=== PATIENT | male | born 1945 | race Caucasian/White ===

== ENCOUNTER 2021-09-20 19:54 | Inpatient (IN) | payer MEDICARE, SELFPAY ==
[~2021-09-20] VITALS: Ht 172.7 cm; Wt 71.7 kg
[2021-09-20 19:59] VITALS: BP_SYST 135
[2021-09-20] MEDS ORDERED: NACL 0.9% 1,000 ML IV ONE ×2 (20:15→22:30)
[2021-09-20 21:01] LABS: ANION GAP 16 (5-15); CALCIUM 8.9 mg/dL (8.4-11.0); CHLORIDE 97 mmol/L (98-107); CREATININE 0.93 mg/dL (0.55-1.30); GLUCOSE 237 mg/dL (70-99); POTASSIUM 4.2 mmol/L (3.5-5.1); SODIUM SERUM 135 mmol/L (136-145); UREA NITROGEN, BLOOD 22 mg/dL (8-21)
[2021-09-20 21:06] LABS: BASOPHILS % (AUTO) 0.1 % (0.0-2.0); HEMATOCRIT 45.5 % (36-54); HEMOGLOBIN 15.5 g/dL (14.0-18.0); LYMPHOCYTES # (AUTO) 0.6 K/uL (1.0-5.5); MEAN CORPUSCULAR HEMOGLOBIN 29 pg (27-31); MEAN CORPUSCULAR HGB CONC 34 % (32-36); MEAN CORPUSCULAR VOLUME 86 fL (79.0-98.0); MONOCYTES # (AUTO) 0.7 K/uL (0.0-1.0); MONOCYTES % (AUTO) 10.6 % (1.7-9.3); NEUTROPHILS # (AUTO) 4.9 K/uL (1.8-7.7); NEUTROPHILS % (AUTO) 79.3 % (40.0-70.0); PLATELET COUNT (AUTO) 147 K/uL (130-430); RED BLOOD CELL COUNT(AUTO) 5.31 MIL/uL (4.2-6.2); RED CELL DISTRIBUTION WIDTH 13.5 % (9.0-15.0); WHITE BLOOD COUNT (AUTO) 6.2 K/uL (4.8-10.8)
[2021-09-20 21:11] LABS: ALANINE AMINOTRANSFERASE 37 U/L (12-78); ALBUMIN 2.8 g/dL (3.4-4.8); ASPARTATE AMINOTRANSFERASE 54 U/L (10-37); TOTAL BILIRUBIN 0.7 mg/dL (0.0-1.0)
[2021-09-20 21:24] LABS: PROTHROMBIN TIME 9.7 SECS (9.5-12.5)
[2021-09-20] MEDS ORDERED: IOHEXOL 350 mgI/mL, 150 ML INFUS..BTL IV ONE (22:38)
[2021-09-21] VITALS (8 sets, daily range): BP systolic 117–138
[2021-09-21 04:40] LABS: BILIRUBIN,URINE NEGATIVE (NEGATIVE); BLOOD, URINE NEGATIVE (NEGATIVE); CLARITY/URINE CLEAR (CLEAR); COLOR,URINE YELLOW (YELLOW); GLUCOSE,URINE 3+ (NEGATIVE); KETONES,URINE 2+ (NEGATIVE); LEUKOCYTE ESTERASE ,URINE NEGATIVE (NEGATIVE); NITRITE, URINE NEGATIVE (NEGATIVE); PH,URINE 5.5 (5.0-8.0); PROTEIN URINE NEGATIVE (NEGATIVE); UROBILINOGEN,URINE 0.2 (0.2-1.0)
[2021-09-21] MEDS ORDERED: D5NS 1,000 ML IV SCH (04:45)
[2021-09-21 04:54] LABS: BACTERIA,URINE FEW /HPF (None Seen); MUCUS,URINE None Seen /LPF (None Seen); YEAST,URINE Many /HPF (None Seen)
[2021-09-21] MEDS: D5/0.45 NS 1,000 ML IV SCH ×2 (11:30→21:30)
[2021-09-21] MEDS ORDERED: ACETAMINOPHEN 325 MG TABLET PO PRN (11:30)
[2021-09-21] MEDS ORDERED: ONDANSETRON HCL 4 MG/2 ML VIAL IVP PRN (11:30)
[2021-09-21] MEDS ORDERED: AZITHROMYCIN 500 MG/VIAL (ZITHROMAX) IV ONE (12:24)
[2021-09-21] MEDS: DEXAMETHASONE SOD PHOSPHATE 10 MG/ML VIAL IVP SCH (12:45)
[2021-09-21] MEDS: cefTRIAXone 1 GM IVPB PREMIX 50 ML IV SCH (12:45)
[2021-09-21] MEDS ORDERED: INSULIN REGULAR, HUMAN 10 UNITS/0.1 ML INJ ONE (13:04)
[2021-09-21] MEDS: INSULIN REGULAR, HUMAN 100 UNITS/ML, 10 ML VIAL (humuLIN R) SUBCUT PRN (13:11)
[2021-09-21] MEDS: AZITHROMYCIN 500 MG in NS 250 ML IV SCH (13:11)
[2021-09-21] MEDS ORDERED: IPRATROPIUM BROM 0.5 MG/2.5 ML VIAL.NEB (ATROVENT) INH SCH (15:00)
[2021-09-21] MEDS ORDERED: ALBUTEROL SULFATE 0.083% 2.5 MG/3 ML VIAL.NEB INH SCH (15:00)
[2021-09-21] MEDS ORDERED: IPRATROPIUM BROM 0.5 MG/2.5 ML VIAL.NEB (ATROVENT) INH PRN (17:00)
[2021-09-21] MEDS ORDERED: ALBUTEROL MDI INHALATION 8 GM INH INH PRN (17:00)
[2021-09-21] MEDS: IBUPROFEN 600 MG TABLET PO PRN (18:17)
[2021-09-21] MEDS: ALBUTEROL MDI INHALATION 8 GM INH INH SCH (20:00)
[2021-09-22] VITALS (12 sets, daily range): BP systolic 111–140
[2021-09-22] MEDS: INSULIN REGULAR, HUMAN 100 UNITS/ML, 10 ML VIAL (humuLIN R) SUBCUT PRN ×3 (05:43→18:24)
[2021-09-22 07:15] LABS: BASOPHILS % (AUTO) 0.1 % (0.0-2.0); HEMATOCRIT 43.7 % (36-54); HEMOGLOBIN 14.7 g/dL (14.0-18.0); LYMPHOCYTES # (AUTO) 0.7 K/uL (1.0-5.5); LYMPHOCYTES % (AUTO) 8.5 % (20.5-51.5); MEAN CORPUSCULAR HEMOGLOBIN 29 pg (27-31); MEAN CORPUSCULAR HGB CONC 34 % (32-36); MEAN CORPUSCULAR VOLUME 87 fL (79.0-98.0); MONOCYTES # (AUTO) 0.8 K/uL (0.0-1.0); MONOCYTES % (AUTO) 10.2 % (1.7-9.3); NEUTROPHILS # (AUTO) 6.6 K/uL (1.8-7.7); NEUTROPHILS % (AUTO) 81.2 % (40.0-70.0); PLATELET COUNT (AUTO) 125 K/uL (130-430); RED BLOOD CELL COUNT(AUTO) 5.02 MIL/uL (4.2-6.2); RED CELL DISTRIBUTION WIDTH 13.6 % (9.0-15.0); WHITE BLOOD COUNT (AUTO) 8.1 K/uL (4.8-10.8)
[2021-09-22] MEDS: D5/0.45 NS 1,000 ML IV SCH ×2 (07:30→18:24)
[2021-09-22 07:41] LABS: ANION GAP 22 (5-15); CALCIUM 8.4 mg/dL (8.4-11.0); CHLORIDE 102 mmol/L (98-107); CREATININE 0.94 mg/dL (0.55-1.30); GLUCOSE 196 mg/dL (70-99); POTASSIUM 4.3 mmol/L (3.5-5.1); SODIUM SERUM 139 mmol/L (136-145); UREA NITROGEN, BLOOD 27 mg/dL (8-21)
[2021-09-22] MEDS ORDERED: ENOXAPARIN SODIUM 40 MG/0.4 ML SYRINGE SUBCUT SCH (09:00)
[2021-09-22] MEDS ORDERED: ASPIRIN 325 MG TABLET PO ONE (10:00)
[2021-09-22] MEDS ORDERED: ASPIRIN 325 MG TABLET (ECOTRIN) PO ONE (10:02)
[2021-09-22] MEDS: AZITHROMYCIN 500 MG in NS 250 ML IV SCH (11:29)
[2021-09-22] MEDS: FLUCONAZOLE 100 mg/ NS 50 ML IV SCH (11:29)
[2021-09-22] MEDS: cefTRIAXone 1 GM IVPB PREMIX 50 ML IV SCH (11:43)
[2021-09-22] MEDS: DEXAMETHASONE SOD PHOSPHATE 10 MG/ML VIAL IVP SCH (11:53)
[2021-09-22 14:54] LABS: ALBUMIN 2.6 g/dL (3.4-4.8); BILIRUBIN,DIRECT 0.1 mg/dL (0.0-0.3); TOTAL BILIRUBIN 0.4 mg/dL (0.0-1.0)
[2021-09-22 15:21] LABS: C-REACTIVE PROTEIN QUANT 13.6 mg/dL (0-0.5)
[2021-09-22] MEDS: ALBUTEROL MDI INHALATION 8 GM INH INH SCH ×2 (20:00→22:57)
[2021-09-22] MEDS: APIXABAN 2.5 MG TABLET PO SCH (21:40)
[2021-09-23] VITALS (21 sets, daily range): BP systolic 99–148
[2021-09-23 06:36] LABS: BASOPHILS % (AUTO) 0.1 % (0.0-2.0); HEMATOCRIT 43.6 % (36-54); HEMOGLOBIN 14.6 g/dL (14.0-18.0); LYMPHOCYTES # (AUTO) 0.5 K/uL (1.0-5.5); LYMPHOCYTES % (AUTO) 4.5 % (20.5-51.5); MEAN CORPUSCULAR HEMOGLOBIN 29 pg (27-31); MEAN CORPUSCULAR HGB CONC 33 % (32-36); MEAN CORPUSCULAR VOLUME 87 fL (79.0-98.0); MONOCYTES # (AUTO) 0.9 K/uL (0.0-1.0); MONOCYTES % (AUTO) 7.4 % (1.7-9.3); NEUTROPHILS # (AUTO) 10.5 K/uL (1.8-7.7); PLATELET COUNT (AUTO) 69 K/uL (130-430); RED BLOOD CELL COUNT(AUTO) 5.04 MIL/uL (4.2-6.2); RED CELL DISTRIBUTION WIDTH 13.7 % (9.0-15.0); WHITE BLOOD COUNT (AUTO) 11.9 K/uL (4.8-10.8)
[2021-09-23] MEDS: INSULIN REGULAR, HUMAN 100 UNITS/ML, 10 ML VIAL (humuLIN R) SUBCUT PRN ×3 (07:09→18:35)
[2021-09-23] MEDS: D5/0.45 NS 1,000 ML IV SCH ×2 (07:10→23:30)
[2021-09-23 07:33] LABS: PROTHROMBIN TIME 9.9 SECS (9.5-12.5)
[2021-09-23 08:01] LABS: ALANINE AMINOTRANSFERASE 31 U/L (12-78); ALBUMIN 2.3 g/dL (3.4-4.8); ANION GAP 23 (5-15); ASPARTATE AMINOTRANSFERASE 47 U/L (10-37); CALCIUM 8.5 mg/dL (8.4-11.0); CHLORIDE 104 mmol/L (98-107); CREATININE 0.86 mg/dL (0.55-1.30); GLUCOSE 213 mg/dL (70-99); POTASSIUM 4.1 mmol/L (3.5-5.1); SODIUM SERUM 140 mmol/L (136-145); TOTAL BILIRUBIN 0.4 mg/dL (0.0-1.0); UREA NITROGEN, BLOOD 23 mg/dL (8-21)
[2021-09-23 08:37] LABS: C-REACTIVE PROTEIN QUANT 9.5 mg/dL (0-0.5)
[2021-09-23] MEDS: APIXABAN 2.5 MG TABLET PO SCH ×2 (09:00→21:00)
[2021-09-23] MEDS: BARICITINIB -Non-Formulary 2 MG TABLET PO SCH (09:24)
[2021-09-23] MEDS: CHOLECALCIFEROL (VITAMIN D3) 2,000 UNIT TABLET PO SCH (09:25)
[2021-09-23] MEDS: ASCORBIC ACID 500 MG TABLET PO SCH ×2 (09:29→21:00)
[2021-09-23] MEDS: DEXAMETHASONE SOD PHOSPHATE 10 MG/ML VIAL IVP SCH (11:58)
[2021-09-23] MEDS: AZITHROMYCIN 500 MG in NS 250 ML IV SCH (11:59)
[2021-09-23] MEDS: cefTRIAXone 1 GM IVPB PREMIX 50 ML IV SCH (11:59)
[2021-09-23] MEDS: FLUCONAZOLE 100 mg/ NS 50 ML IV SCH (12:00)
[2021-09-23 12:58] LABS: ERYTHROCYTE SEDIMENTATION RATE 63 MM/HR (0-15)
[2021-09-24] VITALS (13 sets, daily range): BP systolic 116–151
[2021-09-24] MEDS: INSULIN REGULAR, HUMAN 100 UNITS/ML, 10 ML VIAL (humuLIN R) SUBCUT PRN (06:12)
[2021-09-24 07:53] LABS: ALANINE AMINOTRANSFERASE 23 U/L (12-78); ALBUMIN 2.5 g/dL (3.4-4.8); ANION GAP 14 (5-15); ASPARTATE AMINOTRANSFERASE 34 U/L (10-37); C-REACTIVE PROTEIN QUANT 9.3 mg/dL (0-0.5); CALCIUM 9.1 mg/dL (8.4-11.0); CHLORIDE 106 mmol/L (98-107); CREATININE 0.82 mg/dL (0.55-1.30); GLUCOSE 194 mg/dL (70-99); LACTATE DEHYDROGENASE 416 U/L (85-227); SODIUM SERUM 141 mmol/L (136-145); TOTAL BILIRUBIN 0.4 mg/dL (0.0-1.0); UREA NITROGEN, BLOOD 28 mg/dL (8-21)
[2021-09-24] MEDS: BARICITINIB -Non-Formulary 2 MG TABLET PO SCH (08:47)
[2021-09-24] MEDS: APIXABAN 2.5 MG TABLET PO SCH ×2 (08:48→21:00)
[2021-09-24] MEDS: CHOLECALCIFEROL (VITAMIN D3) 2,000 UNIT TABLET PO SCH (08:48)
[2021-09-24] MEDS: D5/0.45 NS 1,000 ML IV SCH (09:30)
[2021-09-24 09:37] LABS: BASOPHILS % (AUTO) 0.1 % (0.0-2.0); EOSINOPHILS % (AUTO) 0.1 % (0.0-4.0); HEMATOCRIT 45.3 % (36-54); HEMOGLOBIN 15.3 g/dL (14.0-18.0); LYMPHOCYTES # (AUTO) 0.6 K/uL (1.0-5.5); LYMPHOCYTES % (AUTO) 7.9 % (20.5-51.5); MEAN CORPUSCULAR HEMOGLOBIN 29 pg (27-31); MEAN CORPUSCULAR HGB CONC 34 % (32-36); MEAN CORPUSCULAR VOLUME 86 fL (79.0-98.0); MONOCYTES # (AUTO) 0.7 K/uL (0.0-1.0); MONOCYTES % (AUTO) 9.6 % (1.7-9.3); NEUTROPHILS # (AUTO) 6.1 K/uL (1.8-7.7); NEUTROPHILS % (AUTO) 82.3 % (40.0-70.0); RED BLOOD CELL COUNT(AUTO) 5.29 MIL/uL (4.2-6.2); RED CELL DISTRIBUTION WIDTH 13.8 % (9.0-15.0); WHITE BLOOD COUNT (AUTO) 7.4 K/uL (4.8-10.8)
[2021-09-24 10:41] LABS: PLATELET COUNT (AUTO) 24 K/uL (130-430)
[2021-09-24] MEDS: ASCORBIC ACID 500 MG TABLET PO SCH ×2 (12:40→21:00)
[2021-09-24] MEDS: AZITHROMYCIN 500 MG in NS 250 ML IV SCH (12:41)
[2021-09-24] MEDS: cefTRIAXone 1 GM IVPB PREMIX 50 ML IV SCH (12:42)
[2021-09-24] MEDS: FLUCONAZOLE 100 mg/ NS 50 ML IV SCH (12:42)
[2021-09-24] MEDS: DEXAMETHASONE SOD PHOSPHATE 10 MG/ML VIAL IVP SCH (12:45)
[2021-09-24 13:40] LABS: ERYTHROCYTE SEDIMENTATION RATE 23 MM/HR (0-15)
[2021-09-25] VITALS (24 sets, daily range): BP systolic 110–157
[2021-09-25 07:40] LABS: HEMATOCRIT 43.1 % (36-54); HEMOGLOBIN 14.8 g/dL (14.0-18.0); LYMPHOCYTES # (AUTO) 0.5 K/uL (1.0-5.5); LYMPHOCYTES % (AUTO) 6.5 % (20.5-51.5); MEAN CORPUSCULAR HEMOGLOBIN 29 pg (27-31); MEAN CORPUSCULAR HGB CONC 34 % (32-36); MEAN CORPUSCULAR VOLUME 84 fL (79.0-98.0); MONOCYTES # (AUTO) 0.7 K/uL (0.0-1.0); MONOCYTES % (AUTO) 8.7 % (1.7-9.3); NEUTROPHILS # (AUTO) 6.4 K/uL (1.8-7.7); NEUTROPHILS % (AUTO) 84.8 % (40.0-70.0); RED BLOOD CELL COUNT(AUTO) 5.14 MIL/uL (4.2-6.2); RED CELL DISTRIBUTION WIDTH 13.4 % (9.0-15.0); WHITE BLOOD COUNT (AUTO) 7.6 K/uL (4.8-10.8)
[2021-09-25 08:03] LABS: ALANINE AMINOTRANSFERASE 30 U/L (12-78); ALBUMIN 2.5 g/dL (3.4-4.8); ANION GAP 15 (5-15); ASPARTATE AMINOTRANSFERASE 30 U/L (10-37); CALCIUM 8.9 mg/dL (8.4-11.0); CHLORIDE 106 mmol/L (98-107); CREATININE 0.78 mg/dL (0.55-1.30); GLUCOSE 263 mg/dL (70-99); POTASSIUM 3.8 mmol/L (3.5-5.1); SODIUM SERUM 143 mmol/L (136-145); TOTAL BILIRUBIN 0.5 mg/dL (0.0-1.0); UREA NITROGEN, BLOOD 29 mg/dL (8-21)
[2021-09-25] MEDS ORDERED: LORazepam 2 MG/ML VIAL IVP PRN (08:30)
[2021-09-25] MEDS: INSULIN REGULAR, HUMAN 100 UNITS/ML, 10 ML VIAL (humuLIN R) SUBCUT PRN ×3 (08:31→18:11)
[2021-09-25] MEDS: APIXABAN 2.5 MG TABLET PO SCH ×2 (09:03→22:03)
[2021-09-25] MEDS: BARICITINIB -Non-Formulary 2 MG TABLET PO SCH (09:04)
[2021-09-25] MEDS: ASCORBIC ACID 500 MG TABLET PO SCH ×2 (09:04→22:02)
[2021-09-25] MEDS: CHOLECALCIFEROL (VITAMIN D3) 2,000 UNIT TABLET PO SCH (09:04)
[2021-09-25 10:57] LABS: PLATELET COUNT (AUTO) 15 K/uL (130-430)
[2021-09-25] MEDS: FLUCONAZOLE 100 mg/ NS 50 ML IV SCH (11:48)
[2021-09-25] MEDS: cefTRIAXone 1 GM IVPB PREMIX 50 ML IV SCH (12:07)
[2021-09-25] MEDS: AZITHROMYCIN 500 MG in NS 250 ML IV SCH (12:07)
[2021-09-25] MEDS: DEXAMETHASONE SOD PHOSPHATE 10 MG/ML VIAL IVP SCH (12:08)
[2021-09-25] MEDS: D5/0.45 NS 1,000 ML IV SCH (22:04)
[2021-09-25] MEDS: DEXMEDETOMIDINE HCL 400 MCG in NS 96 ML IV PRN (22:31)
[2021-09-26] VITALS (24 sets, daily range): BP systolic 102–142
[2021-09-26] MEDS: INSULIN REGULAR, HUMAN 100 UNITS/ML, 10 ML VIAL (humuLIN R) SUBCUT PRN ×4 (00:58→18:09)
[2021-09-26 06:18] LABS: BASOPHILS % (AUTO) 0.1 % (0.0-2.0); HEMATOCRIT 42.1 % (36-54); HEMOGLOBIN 14.5 g/dL (14.0-18.0); LYMPHOCYTES # (AUTO) 0.5 K/uL (1.0-5.5); LYMPHOCYTES % (AUTO) 5.1 % (20.5-51.5); MEAN CORPUSCULAR HEMOGLOBIN 29 pg (27-31); MEAN CORPUSCULAR HGB CONC 34 % (32-36); MEAN CORPUSCULAR VOLUME 84 fL (79.0-98.0); MONOCYTES # (AUTO) 0.9 K/uL (0.0-1.0); MONOCYTES % (AUTO) 8.4 % (1.7-9.3); NEUTROPHILS # (AUTO) 8.9 K/uL (1.8-7.7); NEUTROPHILS % (AUTO) 86.4 % (40.0-70.0); RED BLOOD CELL COUNT(AUTO) 4.99 MIL/uL (4.2-6.2); RED CELL DISTRIBUTION WIDTH 13.5 % (9.0-15.0); WHITE BLOOD COUNT (AUTO) 10.3 K/uL (4.8-10.8)
[2021-09-26 06:36] LABS: ALANINE AMINOTRANSFERASE 22 U/L (12-78); ALBUMIN 2.3 g/dL (3.4-4.8); ANION GAP 9 (5-15); ASPARTATE AMINOTRANSFERASE 23 U/L (10-37); CALCIUM 8.6 mg/dL (8.4-11.0); CHLORIDE 108 mmol/L (98-107); CREATININE 0.74 mg/dL (0.55-1.30); GLUCOSE 327 mg/dL (70-99); SODIUM SERUM 143 mmol/L (136-145); TOTAL BILIRUBIN 0.5 mg/dL (0.0-1.0); UREA NITROGEN, BLOOD 31 mg/dL (8-21)
[2021-09-26 07:41] LABS: PLATELET COUNT (AUTO) 25 K/uL (130-430)
[2021-09-26 08:01] LABS: ERYTHROCYTE SEDIMENTATION RATE 7 MM/HR (0-15)
[2021-09-26] MEDS: DEXMEDETOMIDINE HCL 400 MCG in NS 96 ML IV PRN ×2 (08:41→17:50)
[2021-09-26] MEDS: ASCORBIC ACID 500 MG TABLET PO SCH ×2 (09:33→20:45)
[2021-09-26] MEDS: D5/0.45 NS 1,000 ML IV SCH ×3 (09:34→20:29)
[2021-09-26] MEDS: CHOLECALCIFEROL (VITAMIN D3) 2,000 UNIT TABLET PO SCH (09:34)
[2021-09-26 10:06] LABS: FOLATE (FOLIC ACID) 12.4 ng/mL (>3.0)
[2021-09-26] MEDS: BARICITINIB -Non-Formulary 2 MG TABLET PO SCH (10:11)
[2021-09-26] MEDS: APIXABAN 2.5 MG TABLET PO SCH ×2 (11:09→20:46)
[2021-09-26] MEDS: cefTRIAXone 1 GM IVPB PREMIX 50 ML IV SCH (11:52)
[2021-09-26] MEDS: DEXAMETHASONE SOD PHOSPHATE 10 MG/ML VIAL IVP SCH (11:52)
[2021-09-26] MEDS: FLUCONAZOLE 100 mg/ NS 50 ML IV SCH (12:34)
[2021-09-26] MEDS: ALBUTEROL MDI INHALATION 8 GM INH INH SCH ×2 (20:30→23:00)
[2021-09-27] VITALS (20 sets, daily range): BP systolic 92–136
[2021-09-27] MEDS: INSULIN REGULAR, HUMAN 100 UNITS/ML, 10 ML VIAL (humuLIN R) SUBCUT PRN ×4 (01:03→19:35)
[2021-09-27] MEDS: ALBUTEROL MDI INHALATION 8 GM INH INH SCH (03:00)
[2021-09-27 07:53] LABS: ANION GAP 8 (5-15); CALCIUM 8.3 mg/dL (8.4-11.0); CHLORIDE 106 mmol/L (98-107); CREATININE 0.58 mg/dL (0.55-1.30); GLUCOSE 258 mg/dL (70-99); POTASSIUM 3.6 mmol/L (3.5-5.1); SODIUM SERUM 140 mmol/L (136-145); UREA NITROGEN, BLOOD 26 mg/dL (8-21)
[2021-09-27 08:50] LABS: HEMATOCRIT 41.7 % (36-54); HEMOGLOBIN 14.1 g/dL (14.0-18.0); LYMPHOCYTES # (AUTO) 0.5 K/uL (1.0-5.5); LYMPHOCYTES % (AUTO) 4.3 % (20.5-51.5); MEAN CORPUSCULAR HEMOGLOBIN 29 pg (27-31); MEAN CORPUSCULAR HGB CONC 34 % (32-36); MEAN CORPUSCULAR VOLUME 85 fL (79.0-98.0); MONOCYTES # (AUTO) 0.7 K/uL (0.0-1.0); MONOCYTES % (AUTO) 6.4 % (1.7-9.3); NEUTROPHILS # (AUTO) 9.8 K/uL (1.8-7.7); NEUTROPHILS % (AUTO) 89.3 % (40.0-70.0); RED BLOOD CELL COUNT(AUTO) 4.89 MIL/uL (4.2-6.2); RED CELL DISTRIBUTION WIDTH 13.1 % (9.0-15.0); WHITE BLOOD COUNT (AUTO) 10.9 K/uL (4.8-10.8)
[2021-09-27] MEDS: APIXABAN 2.5 MG TABLET PO SCH ×2 (09:00→21:17)
[2021-09-27] MEDS: BARICITINIB -Non-Formulary 2 MG TABLET PO SCH (09:00)
[2021-09-27 10:10] LABS: ERYTHROCYTE SEDIMENTATION RATE 2 MM/HR (0-15)
[2021-09-27] MEDS: ASCORBIC ACID 500 MG TABLET PO SCH ×2 (10:17→21:16)
[2021-09-27] MEDS: CHOLECALCIFEROL (VITAMIN D3) 2,000 UNIT TABLET PO SCH (10:17)
[2021-09-27] MEDS: FLUCONAZOLE 100 mg/ NS 50 ML IV SCH (11:00)
[2021-09-27 11:06] LABS: ANTI NUCLEAR AB WITH REFLEX Negative (Negative)
[2021-09-27] MEDS: cefTRIAXone 1 GM IVPB PREMIX 50 ML IV SCH (12:00)
[2021-09-27] MEDS: DEXAMETHASONE SOD PHOSPHATE 10 MG/ML VIAL IVP SCH (12:00)
[2021-09-27 13:15] LABS: PLATELET COUNT (AUTO) 24 K/uL (130-430)
[2021-09-28] VITALS (23 sets, daily range): BP systolic 113–155
[2021-09-28] MEDS: IBUPROFEN 600 MG TABLET PO PRN ×2 (00:01→02:58)
[2021-09-28] MEDS: INSULIN REGULAR, HUMAN 100 UNITS/ML, 10 ML VIAL (humuLIN R) SUBCUT PRN ×4 (00:29→18:52)
[2021-09-28] MEDS: D5/0.45 NS 1,000 ML IV SCH ×2 (03:30→08:55)
[2021-09-28 07:18] LABS: BASOPHILS % (AUTO) 0.1 % (0.0-2.0); HEMATOCRIT 42.5 % (36-54); HEMOGLOBIN 14.6 g/dL (14.0-18.0); LYMPHOCYTES # (AUTO) 0.7 K/uL (1.0-5.5); LYMPHOCYTES % (AUTO) 5.6 % (20.5-51.5); MEAN CORPUSCULAR HEMOGLOBIN 29 pg (27-31); MEAN CORPUSCULAR HGB CONC 34 % (32-36); MEAN CORPUSCULAR VOLUME 85 fL (79.0-98.0); MONOCYTES # (AUTO) 0.8 K/uL (0.0-1.0); MONOCYTES % (AUTO) 6.5 % (1.7-9.3); NEUTROPHILS # (AUTO) 10.4 K/uL (1.8-7.7); NEUTROPHILS % (AUTO) 87.8 % (40.0-70.0); PLATELET COUNT (AUTO) 55 K/uL (130-430); RED BLOOD CELL COUNT(AUTO) 5.02 MIL/uL (4.2-6.2); RED CELL DISTRIBUTION WIDTH 13.4 % (9.0-15.0); WHITE BLOOD COUNT (AUTO) 11.9 K/uL (4.8-10.8)
[2021-09-28 08:46] LABS: ALANINE AMINOTRANSFERASE 30 U/L (12-78); ALBUMIN 2.3 g/dL (3.4-4.8); ANION GAP 7 (5-15); ASPARTATE AMINOTRANSFERASE 36 U/L (10-37); C-REACTIVE PROTEIN QUANT 3.9 mg/dL (0-0.5); CALCIUM 8.6 mg/dL (8.4-11.0); CHLORIDE 103 mmol/L (98-107); CREATININE 0.65 mg/dL (0.55-1.30); GLUCOSE 189 mg/dL (70-99); POTASSIUM 3.6 mmol/L (3.5-5.1); SODIUM SERUM 140 mmol/L (136-145); TOTAL BILIRUBIN 0.9 mg/dL (0.0-1.0); UREA NITROGEN, BLOOD 25 mg/dL (8-21)
[2021-09-28] MEDS: ASCORBIC ACID 500 MG TABLET PO SCH ×2 (08:52→20:07)
[2021-09-28] MEDS: BARICITINIB -Non-Formulary 2 MG TABLET PO SCH (08:52)
[2021-09-28] MEDS: APIXABAN 2.5 MG TABLET PO SCH ×2 (08:54→21:15)
[2021-09-28] MEDS: CHOLECALCIFEROL (VITAMIN D3) 2,000 UNIT TABLET PO SCH (08:54)
[2021-09-28 10:53] LABS: ERYTHROCYTE SEDIMENTATION RATE 3 MM/HR (0-15)
[2021-09-28] MEDS: FLUCONAZOLE 100 mg/ NS 50 ML IV SCH (12:18)
[2021-09-28] MEDS: DEXAMETHASONE SOD PHOSPHATE 10 MG/ML VIAL IVP SCH (12:21)
[2021-09-28] MEDS: cefTRIAXone 1 GM IVPB PREMIX 50 ML IV SCH (12:58)
[2021-09-28] MEDS: ALBUTEROL MDI INHALATION 8 GM INH INH SCH ×2 (19:00→22:53)
[2021-09-28] MEDS ORDERED: NALOXONE HCL 0.4 MG/ML AMP (NARCAN) IVP PRN ×2 (20:00→20:15)
[2021-09-28] MEDS ORDERED: HYDROcodone/ACETAMIN 10-325 MG TAB PO PRN (20:00)
[2021-09-28] MEDS: HYDROcodone/ACETAMIN 10-325 MG TAB PO PRN (20:25)
[2021-09-28] MEDS ORDERED: INSULIN GLARGINE 100 UNITS/ML 10 ML VIAL SUBCUT SCH (21:00)
[2021-09-29] VITALS (24 sets, daily range): BP systolic 111–158
[2021-09-29] MEDS: D5/0.45 NS 1,000 ML IV SCH ×2 (00:10→09:16)
[2021-09-29] MEDS: HYDROcodone/ACETAMIN 10-325 MG TAB PO PRN ×2 (01:00→05:56)
[2021-09-29] MEDS: ALBUTEROL MDI INHALATION 8 GM INH INH SCH ×6 (03:00→23:00)
[2021-09-29 06:06] LABS: ANION GAP 7 (5-15); CALCIUM 8.4 mg/dL (8.4-11.0); CHLORIDE 100 mmol/L (98-107); CREATININE 0.53 mg/dL (0.55-1.30); GLUCOSE 262 mg/dL (70-99); POTASSIUM 4.2 mmol/L (3.5-5.1); SODIUM SERUM 137 mmol/L (136-145); UREA NITROGEN, BLOOD 21 mg/dL (8-21)
[2021-09-29] MEDS: INSULIN REGULAR, HUMAN 100 UNITS/ML, 10 ML VIAL (humuLIN R) SUBCUT PRN ×4 (06:14→21:56)
[2021-09-29 07:22] LABS: BASOPHILS % (AUTO) 0.1 % (0.0-2.0); HEMATOCRIT 40.6 % (36-54); HEMOGLOBIN 13.8 g/dL (14.0-18.0); LYMPHOCYTES # (AUTO) 0.4 K/uL (1.0-5.5); LYMPHOCYTES % (AUTO) 3.9 % (20.5-51.5); MEAN CORPUSCULAR HEMOGLOBIN 29 pg (27-31); MEAN CORPUSCULAR HGB CONC 34 % (32-36); MEAN CORPUSCULAR VOLUME 85 fL (79.0-98.0); MONOCYTES # (AUTO) 0.9 K/uL (0.0-1.0); MONOCYTES % (AUTO) 7.9 % (1.7-9.3); NEUTROPHILS # (AUTO) 9.7 K/uL (1.8-7.7); RED BLOOD CELL COUNT(AUTO) 4.76 MIL/uL (4.2-6.2); RED CELL DISTRIBUTION WIDTH 13.2 % (9.0-15.0)
[2021-09-29 07:31] LABS: C-REACTIVE PROTEIN QUANT 2.7 mg/dL (0-0.5)
[2021-09-29 08:09] LABS: PLATELET COUNT (AUTO) 46 K/uL (130-430)
[2021-09-29] MEDS: APIXABAN 2.5 MG TABLET PO SCH ×2 (09:09→21:52)
[2021-09-29] MEDS: BARICITINIB -Non-Formulary 2 MG TABLET PO SCH (09:12)
[2021-09-29] MEDS: CHOLECALCIFEROL (VITAMIN D3) 2,000 UNIT TABLET PO SCH (09:13)
[2021-09-29] MEDS: ASCORBIC ACID 500 MG TABLET PO SCH ×2 (09:13→21:42)
[2021-09-29] MEDS: FLUCONAZOLE 100 mg/ NS 50 ML IV SCH (10:51)
[2021-09-29 12:33] LABS: ERYTHROCYTE SEDIMENTATION RATE 5 MM/HR (0-15)
[2021-09-29] MEDS: DEXAMETHASONE SOD PHOSPHATE 10 MG/ML VIAL IVP SCH (12:59)
[2021-09-29] MEDS: cefTRIAXone 1 GM IVPB PREMIX 50 ML IV SCH (13:00)
[2021-09-29] MEDS ORDERED: MECLIZINE HCL 25 MG TABLET (ANITVERT) PO PRN (14:00)
[2021-09-29 15:33] LABS: NEUTROPHILS % (AUTO) 88.1 % (40.0-70.0)
[2021-09-29] MEDS: HYDROcodone/ACETAMIN 5-325 MG TAB (NORCO/ VICODIN) PO PRN (17:37)
[2021-09-29] MEDS: 0.45% NACL 1,000 ML IV SCH (21:42)
[2021-09-29] MEDS: INSULIN GLARGINE 100 UNITS/ML 10 ML VIAL SUBCUT SCH (21:49)
[2021-09-29] MEDS: INSULIN Lispro 100 UNITS/ML VIAL (humaLOG) SUBCUT SCH (21:51)
[2021-09-30] VITALS (19 sets, daily range): BP systolic 105–146
[2021-09-30] MEDS: INSULIN REGULAR, HUMAN 100 UNITS/ML, 10 ML VIAL (humuLIN R) SUBCUT PRN ×4 (00:34→18:56)
[2021-09-30] MEDS: ALBUTEROL MDI INHALATION 8 GM INH INH SCH ×6 (03:06→23:00)
[2021-09-30] MEDS: HYDROcodone/ACETAMIN 10-325 MG TAB PO PRN (03:07)
[2021-09-30 06:57] LABS: BASOPHILS % (AUTO) 0.1 % (0.0-2.0); EOSINOPHILS % (AUTO) 0.1 % (0.0-4.0); HEMOGLOBIN 12.9 g/dL (14.0-18.0); LYMPHOCYTES # (AUTO) 0.4 K/uL (1.0-5.5); LYMPHOCYTES % (AUTO) 3.7 % (20.5-51.5); MEAN CORPUSCULAR HEMOGLOBIN 29 pg (27-31); MEAN CORPUSCULAR HGB CONC 35 % (32-36); MEAN CORPUSCULAR VOLUME 84 fL (79.0-98.0); MONOCYTES # (AUTO) 0.7 K/uL (0.0-1.0); MONOCYTES % (AUTO) 6.2 % (1.7-9.3); NEUTROPHILS # (AUTO) 9.6 K/uL (1.8-7.7); NEUTROPHILS % (AUTO) 89.9 % (40.0-70.0); PLATELET COUNT (AUTO) 58 K/uL (130-430); RED BLOOD CELL COUNT(AUTO) 4.38 MIL/uL (4.2-6.2); RED CELL DISTRIBUTION WIDTH 13.3 % (9.0-15.0); WHITE BLOOD COUNT (AUTO) 10.6 K/uL (4.8-10.8)
[2021-09-30 07:15] LABS: ALANINE AMINOTRANSFERASE 32 U/L (12-78); ALBUMIN 1.8 g/dL (3.4-4.8); ANION GAP 3 (5-15); ASPARTATE AMINOTRANSFERASE 27 U/L (10-37); C-REACTIVE PROTEIN QUANT 5.2 mg/dL (0-0.5); CALCIUM 8.1 mg/dL (8.4-11.0); CHLORIDE 100 mmol/L (98-107); CREATININE 0.57 mg/dL (0.55-1.30); GLUCOSE 236 mg/dL (70-99); POTASSIUM 3.6 mmol/L (3.5-5.1); SODIUM SERUM 135 mmol/L (136-145); TOTAL BILIRUBIN 0.6 mg/dL (0.0-1.0); UREA NITROGEN, BLOOD 23 mg/dL (8-21)
[2021-09-30] MEDS: INSULIN Lispro 100 UNITS/ML VIAL (humaLOG) SUBCUT SCH ×3 (07:15→22:57)
[2021-09-30] MEDS: APIXABAN 2.5 MG TABLET PO SCH ×2 (08:53→22:42)
[2021-09-30] MEDS: CHOLECALCIFEROL (VITAMIN D3) 2,000 UNIT TABLET PO SCH (08:55)
[2021-09-30] MEDS: ASCORBIC ACID 500 MG TABLET PO SCH ×2 (08:55→22:43)
[2021-09-30] MEDS: INSULIN GLARGINE 100 UNITS/ML 10 ML VIAL SUBCUT SCH ×2 (08:58→22:51)
[2021-09-30] MEDS: 0.45% NACL 1,000 ML IV SCH (09:11)
[2021-09-30] MEDS: BARICITINIB -Non-Formulary 2 MG TABLET PO SCH (09:11)
[2021-09-30] MEDS: HYDROcodone/ACETAMIN 5-325 MG TAB (NORCO/ VICODIN) PO PRN ×2 (09:20→13:08)
[2021-09-30] MEDS: FLUCONAZOLE 100 mg/ NS 50 ML IV SCH (11:00)
[2021-09-30] MEDS: cefTRIAXone 1 GM IVPB PREMIX 50 ML IV SCH (13:10)
[2021-09-30] MEDS: DEXAMETHASONE SOD PHOSPHATE 10 MG/ML VIAL IVP SCH (13:10)
[2021-09-30 13:35] LABS: ERYTHROCYTE SEDIMENTATION RATE 5 MM/HR (0-15)
[2021-10-01] VITALS (23 sets, daily range): BP systolic 102–136
[2021-10-01] MEDS: ALBUTEROL MDI INHALATION 8 GM INH INH SCH ×2 (04:04→19:00)
[2021-10-01] MEDS: INSULIN Lispro 100 UNITS/ML VIAL (humaLOG) SUBCUT SCH ×2 (06:40→22:59)
[2021-10-01] MEDS: 0.45% NACL 1,000 ML IV SCH ×2 (07:42→12:54)
[2021-10-01 08:30] LABS: ANION GAP 3 (5-15); CALCIUM 8.4 mg/dL (8.4-11.0); CHLORIDE 96 mmol/L (98-107); CREATININE 0.59 mg/dL (0.55-1.30); GLUCOSE 148 mg/dL (70-99); POTASSIUM 4.2 mmol/L (3.5-5.1); SODIUM SERUM 133 mmol/L (136-145); UREA NITROGEN, BLOOD 16 mg/dL (8-21)
[2021-10-01] MEDS: INSULIN GLARGINE 100 UNITS/ML 10 ML VIAL SUBCUT SCH ×2 (09:13→22:54)
[2021-10-01 09:16] LABS: BASOPHILS % (AUTO) 0.1 % (0.0-2.0); EOSINOPHILS % (AUTO) 0.2 % (0.0-4.0); HEMATOCRIT 39.5 % (36-54); HEMOGLOBIN 13.6 g/dL (14.0-18.0); LYMPHOCYTES # (AUTO) 0.6 K/uL (1.0-5.5); LYMPHOCYTES % (AUTO) 4.4 % (20.5-51.5); MEAN CORPUSCULAR HEMOGLOBIN 29 pg (27-31); MEAN CORPUSCULAR HGB CONC 34 % (32-36); MEAN CORPUSCULAR VOLUME 85 fL (79.0-98.0); MONOCYTES # (AUTO) 0.8 K/uL (0.0-1.0); MONOCYTES % (AUTO) 5.3 % (1.7-9.3); NEUTROPHILS # (AUTO) 13.4 K/uL (1.8-7.7); PLATELET COUNT (AUTO) 57 K/uL (130-430); RED BLOOD CELL COUNT(AUTO) 4.67 MIL/uL (4.2-6.2); RED CELL DISTRIBUTION WIDTH 13.2 % (9.0-15.0)
[2021-10-01] MEDS: BARICITINIB -Non-Formulary 2 MG TABLET PO SCH (09:18)
[2021-10-01] MEDS: ASCORBIC ACID 500 MG TABLET PO SCH ×2 (09:18→22:48)
[2021-10-01] MEDS: APIXABAN 2.5 MG TABLET PO SCH ×2 (09:20→22:49)
[2021-10-01] MEDS: CHOLECALCIFEROL (VITAMIN D3) 2,000 UNIT TABLET PO SCH (09:21)
[2021-10-01] MEDS: FLUCONAZOLE 100 mg/ NS 50 ML IV SCH (12:06)
[2021-10-01 12:33] LABS: WHITE BLOOD COUNT (AUTO) 14.8 K/uL (4.8-10.8)
[2021-10-01] MEDS: cefTRIAXone 1 GM IVPB PREMIX 50 ML IV SCH (12:52)
[2021-10-01] MEDS: DEXAMETHASONE SOD PHOSPHATE 10 MG/ML VIAL IVP SCH (12:52)
[2021-10-01 13:28] LABS: ERYTHROCYTE SEDIMENTATION RATE 6 MM/HR (0-15)
[2021-10-02] VITALS (23 sets, daily range): BP systolic 99–142
[2021-10-02] MEDS: 0.45% NACL 1,000 ML IV SCH ×2 (03:00→14:55)
[2021-10-02] MEDS: INSULIN Lispro 100 UNITS/ML VIAL (humaLOG) SUBCUT SCH ×4 (06:42→22:03)
[2021-10-02 07:33] LABS: EOSINOPHILS % (AUTO) 0.1 % (0.0-4.0); HEMATOCRIT 39.8 % (36-54); HEMOGLOBIN 13.5 g/dL (14.0-18.0); LYMPHOCYTES # (AUTO) 0.6 K/uL (1.0-5.5); LYMPHOCYTES % (AUTO) 4.1 % (20.5-51.5); MEAN CORPUSCULAR HEMOGLOBIN 29 pg (27-31); MEAN CORPUSCULAR HGB CONC 34 % (32-36); MEAN CORPUSCULAR VOLUME 85 fL (79.0-98.0); MONOCYTES # (AUTO) 0.7 K/uL (0.0-1.0); MONOCYTES % (AUTO) 4.5 % (1.7-9.3); NEUTROPHILS # (AUTO) 13.8 K/uL (1.8-7.7); NEUTROPHILS % (AUTO) 91.3 % (40.0-70.0); PLATELET COUNT (AUTO) 69 K/uL (130-430); RED BLOOD CELL COUNT(AUTO) 4.71 MIL/uL (4.2-6.2); RED CELL DISTRIBUTION WIDTH 13.4 % (9.0-15.0); WHITE BLOOD COUNT (AUTO) 15.1 K/uL (4.8-10.8)
[2021-10-02 07:51] LABS: ANION GAP 5 (5-15); CALCIUM 8.5 mg/dL (8.4-11.0); CHLORIDE 96 mmol/L (98-107); CREATININE 0.48 mg/dL (0.55-1.30); GLUCOSE 77 mg/dL (70-99); POTASSIUM 3.9 mmol/L (3.5-5.1); SODIUM SERUM 136 mmol/L (136-145); UREA NITROGEN, BLOOD 13 mg/dL (8-21)
[2021-10-02 08:01] LABS: C-REACTIVE PROTEIN QUANT 13.7 mg/dL (0-0.5)
[2021-10-02] MEDS: ALBUTEROL MDI INHALATION 8 GM INH INH SCH ×3 (08:38→20:38)
[2021-10-02 08:47] LABS: ERYTHROCYTE SEDIMENTATION RATE 18 MM/HR (0-15)
[2021-10-02] MEDS: BARICITINIB -Non-Formulary 2 MG TABLET PO SCH (09:19)
[2021-10-02] MEDS: ASCORBIC ACID 500 MG TABLET PO SCH ×2 (09:20→21:54)
[2021-10-02] MEDS: CHOLECALCIFEROL (VITAMIN D3) 2,000 UNIT TABLET PO SCH (09:21)
[2021-10-02] MEDS: APIXABAN 2.5 MG TABLET PO SCH ×2 (09:22→21:56)
[2021-10-02] MEDS ORDERED: DEXTROSE 50% JECT 50 ML DISP.SYRIN ONE (09:42)
[2021-10-02] MEDS ORDERED: INSULIN GLARGINE 100 UNITS/ML 10 ML VIAL SUBCUT ONE (11:00)
[2021-10-02] MEDS: FLUCONAZOLE 100 mg/ NS 50 ML IV SCH (12:12)
[2021-10-02] MEDS: cefTRIAXone 1 GM IVPB PREMIX 50 ML IV SCH (12:13)
[2021-10-02] MEDS: DEXAMETHASONE SOD PHOSPHATE 10 MG/ML VIAL IVP SCH (12:49)
[2021-10-02] MEDS: INSULIN GLARGINE 100 UNITS/ML 10 ML VIAL SUBCUT SCH (21:51)
[2021-10-03] VITALS (20 sets, daily range): BP systolic 90–140
[2021-10-03 08:03] LABS: BASOPHILS % (AUTO) 0.1 % (0.0-2.0); EOSINOPHILS % (AUTO) 0.1 % (0.0-4.0); HEMATOCRIT 37.1 % (36-54); HEMOGLOBIN 12.6 g/dL (14.0-18.0); LYMPHOCYTES # (AUTO) 0.4 K/uL (1.0-5.5); LYMPHOCYTES % (AUTO) 2.9 % (20.5-51.5); MEAN CORPUSCULAR HEMOGLOBIN 29 pg (27-31); MEAN CORPUSCULAR HGB CONC 34 % (32-36); MEAN CORPUSCULAR VOLUME 84 fL (79.0-98.0); MONOCYTES # (AUTO) 0.4 K/uL (0.0-1.0); MONOCYTES % (AUTO) 2.9 % (1.7-9.3); NEUTROPHILS # (AUTO) 12.5 K/uL (1.8-7.7); PLATELET COUNT (AUTO) 86 K/uL (130-430); RED BLOOD CELL COUNT(AUTO) 4.39 MIL/uL (4.2-6.2); RED CELL DISTRIBUTION WIDTH 13.2 % (9.0-15.0); WHITE BLOOD COUNT (AUTO) 13.3 K/uL (4.8-10.8)
[2021-10-03 08:21] LABS: ALANINE AMINOTRANSFERASE 36 U/L (12-78); ALBUMIN 1.8 g/dL (3.4-4.8); ANION GAP 6 (5-15); ASPARTATE AMINOTRANSFERASE 37 U/L (10-37); CALCIUM 8.4 mg/dL (8.4-11.0); CHLORIDE 97 mmol/L (98-107); CREATININE 0.39 mg/dL (0.55-1.30); GLUCOSE 190 mg/dL (70-99); POTASSIUM 3.8 mmol/L (3.5-5.1); SODIUM SERUM 134 mmol/L (136-145); TOTAL BILIRUBIN 0.5 mg/dL (0.0-1.0); UREA NITROGEN, BLOOD 13 mg/dL (8-21)
[2021-10-03] MEDS: 0.45% NACL 1,000 ML IV SCH (08:40)
[2021-10-03 08:53] LABS: C-REACTIVE PROTEIN QUANT 16.9 mg/dL (0-0.5)
[2021-10-03] MEDS ORDERED: D5W 1,000 ML IV PRN (09:30)
[2021-10-03] MEDS ORDERED: DEXTROSE 50%-WATER 50 ML DISP.SYRIN IVP PRN (09:30)
[2021-10-03] MEDS ORDERED: GLUCOSE (DEXTROSE) ORAL GEL -Adults PO PRN (09:30)
[2021-10-03] MEDS: APIXABAN 2.5 MG TABLET PO SCH ×2 (09:32→22:51)
[2021-10-03] MEDS: BARICITINIB -Non-Formulary 2 MG TABLET PO SCH (09:33)
[2021-10-03] MEDS: ASCORBIC ACID 500 MG TABLET PO SCH ×2 (09:34→22:40)
[2021-10-03] MEDS: CHOLECALCIFEROL (VITAMIN D3) 2,000 UNIT TABLET PO SCH (09:35)
[2021-10-03 09:37] LABS: ERYTHROCYTE SEDIMENTATION RATE 36 MM/HR (0-15)
[2021-10-03] MEDS: INSULIN GLARGINE 100 UNITS/ML 10 ML VIAL SUBCUT SCH ×2 (09:38→22:50)
[2021-10-03] MEDS: cefTRIAXone 1 GM IVPB PREMIX 50 ML IV SCH (12:11)
[2021-10-03] MEDS: DEXAMETHASONE SOD PHOSPHATE 10 MG/ML VIAL IVP SCH (12:22)
[2021-10-03] MEDS: INSULIN LISPRO SLIDING SCALE 100 UNITS/ML VIAL (humaLOG) SUBCUT PRN ×2 (12:30→17:47)
[2021-10-03] MEDS: INSULIN Lispro 100 UNITS/ML VIAL (humaLOG) SUBCUT SCH ×3 (12:33→22:47)
[2021-10-03] MEDS: FLUCONAZOLE 100 mg/ NS 50 ML IV SCH (14:25)
[2021-10-03] MEDS: ALBUTEROL MDI INHALATION 8 GM INH INH SCH ×4 (17:14→23:05)
[2021-10-04] VITALS (23 sets, daily range): BP systolic 97–142
[2021-10-04] MEDS: ALBUTEROL MDI INHALATION 8 GM INH INH SCH ×2 (00:15→19:49)
[2021-10-04 06:03] LABS: BASOPHILS % (AUTO) 0.1 % (0.0-2.0); EOSINOPHILS % (AUTO) 0.2 % (0.0-4.0); HEMATOCRIT 37.1 % (36-54); HEMOGLOBIN 12.5 g/dL (14.0-18.0); LYMPHOCYTES # (AUTO) 0.4 K/uL (1.0-5.5); MEAN CORPUSCULAR HEMOGLOBIN 29 pg (27-31); MEAN CORPUSCULAR HGB CONC 34 % (32-36); MEAN CORPUSCULAR VOLUME 85 fL (79.0-98.0); MONOCYTES # (AUTO) 0.3 K/uL (0.0-1.0); MONOCYTES % (AUTO) 2.7 % (1.7-9.3); NEUTROPHILS # (AUTO) 11.9 K/uL (1.8-7.7); PLATELET COUNT (AUTO) 79 K/uL (130-430); RED BLOOD CELL COUNT(AUTO) 4.36 MIL/uL (4.2-6.2); RED CELL DISTRIBUTION WIDTH 13.3 % (9.0-15.0); WHITE BLOOD COUNT (AUTO) 12.6 K/uL (4.8-10.8)
[2021-10-04 06:41] LABS: ANION GAP 3 (5-15); CALCIUM 8.5 mg/dL (8.4-11.0); CHLORIDE 95 mmol/L (98-107); GLUCOSE 154 mg/dL (70-99); POTASSIUM 4.2 mmol/L (3.5-5.1); SODIUM SERUM 133 mmol/L (136-145); UREA NITROGEN, BLOOD 17 mg/dL (8-21)
[2021-10-04] MEDS: 0.45% NACL 1,000 ML IV SCH ×3 (06:55→20:15)
[2021-10-04 07:19] LABS: C-REACTIVE PROTEIN QUANT 13.5 mg/dL (0-0.5)
[2021-10-04] MEDS: APIXABAN 2.5 MG TABLET PO SCH ×2 (08:38→21:26)
[2021-10-04] MEDS: CHOLECALCIFEROL (VITAMIN D3) 2,000 UNIT TABLET PO SCH (08:39)
[2021-10-04] MEDS: ASCORBIC ACID 500 MG TABLET PO SCH ×2 (08:40→21:28)
[2021-10-04] MEDS: BARICITINIB -Non-Formulary 2 MG TABLET PO SCH (08:41)
[2021-10-04] MEDS: INSULIN GLARGINE 100 UNITS/ML 10 ML VIAL SUBCUT SCH ×2 (09:25→21:28)
[2021-10-04] MEDS: INSULIN LISPRO SLIDING SCALE 100 UNITS/ML VIAL (humaLOG) SUBCUT PRN ×2 (09:28→12:44)
[2021-10-04 09:38] LABS: ERYTHROCYTE SEDIMENTATION RATE 40 MM/HR (0-15)
[2021-10-04] MEDS: FLUCONAZOLE 100 mg/ NS 50 ML IV SCH (12:29)
[2021-10-04] MEDS: cefTRIAXone 1 GM IVPB PREMIX 50 ML IV SCH (12:32)
[2021-10-04] MEDS: DEXAMETHASONE SOD PHOSPHATE 10 MG/ML VIAL IVP SCH (12:36)
[2021-10-04] MEDS: INSULIN Lispro 100 UNITS/ML VIAL (humaLOG) SUBCUT SCH ×2 (12:40→17:44)
[2021-10-05] VITALS (22 sets, daily range): BP systolic 88–131
[2021-10-05] MEDS ORDERED: LORazepam 2 MG/ML VIAL ONE (01:43)
[2021-10-05] MEDS: ALBUTEROL MDI INHALATION 8 GM INH INH SCH ×5 (03:00→20:30)
[2021-10-05] MEDS: INSULIN Lispro 100 UNITS/ML VIAL (humaLOG) SUBCUT SCH ×3 (07:00→17:00)
[2021-10-05 07:43] LABS: ANION GAP 6 (5-15); CALCIUM 8.4 mg/dL (8.4-11.0); CHLORIDE 96 mmol/L (98-107); CREATININE 0.42 mg/dL (0.55-1.30); POTASSIUM 3.3 mmol/L (3.5-5.1); SODIUM SERUM 134 mmol/L (136-145); UREA NITROGEN, BLOOD 15 mg/dL (8-21)
[2021-10-05 08:06] LABS: BASOPHILS % (AUTO) 0.2 % (0.0-2.0); EOSINOPHILS % (AUTO) 0.1 % (0.0-4.0); HEMATOCRIT 38.2 % (36-54); LYMPHOCYTES # (AUTO) 0.3 K/uL (1.0-5.5); LYMPHOCYTES % (AUTO) 1.3 % (20.5-51.5); MEAN CORPUSCULAR HEMOGLOBIN 29 pg (27-31); MEAN CORPUSCULAR HGB CONC 34 % (32-36); MEAN CORPUSCULAR VOLUME 84 fL (79.0-98.0); MONOCYTES # (AUTO) 0.7 K/uL (0.0-1.0); MONOCYTES % (AUTO) 2.7 % (1.7-9.3); NEUTROPHILS # (AUTO) 24.1 K/uL (1.8-7.7); PLATELET COUNT (AUTO) 82 K/uL (130-430); RED BLOOD CELL COUNT(AUTO) 4.55 MIL/uL (4.2-6.2); RED CELL DISTRIBUTION WIDTH 13.6 % (9.0-15.0); WHITE BLOOD COUNT (AUTO) 25.2 K/uL (4.8-10.8)
[2021-10-05 08:23] LABS: GLUCOSE 43 mg/dL (70-99)
[2021-10-05] MEDS: INSULIN GLARGINE 100 UNITS/ML 10 ML VIAL SUBCUT SCH ×2 (09:00→21:00)
[2021-10-05] MEDS: APIXABAN 2.5 MG TABLET PO SCH ×3 (09:00→21:35)
[2021-10-05] MEDS: CHOLECALCIFEROL (VITAMIN D3) 2,000 UNIT TABLET PO SCH (09:00)
[2021-10-05 09:09] LABS: C-REACTIVE PROTEIN QUANT 16.8 mg/dL (0-0.5)
[2021-10-05] MEDS ORDERED: PANTOPRAZOLE SODIUM 40 MG TAB PO ONE (10:00)
[2021-10-05] MEDS: BARICITINIB -Non-Formulary 2 MG TABLET PO SCH (10:49)
[2021-10-05] MEDS: ASCORBIC ACID 500 MG TABLET PO SCH ×3 (10:50→21:36)
[2021-10-05] MEDS: PIPERACILLIN/TAZO 3.375/DEX-IS 50 ML IV SCH ×3 (10:51→18:00)
[2021-10-05] MEDS: FLUCONAZOLE 100 mg/ NS 50 ML IV SCH (10:56)
[2021-10-05 12:02] LABS: ERYTHROCYTE SEDIMENTATION RATE 56 MM/HR (0-15)
[2021-10-05] MEDS: MICAFUNGIN SODIUM 100 MG in NS 100 ML IV SCH (13:08)
[2021-10-05 13:12] LABS: NEUTROPHILS % (AUTO) 95.7 % (40.0-70.0)
[2021-10-05] MEDS: DEXAMETHASONE SOD PHOSPHATE 10 MG/ML VIAL IVP SCH (13:24)
[2021-10-05] MEDS: NORMAL SALINE 5 ML DISP.SYRIN IVF SCH ×2 (14:00→23:02)
[2021-10-05] MEDS: LORazepam 2 MG/ML VIAL IVP PRN (21:36)
[2021-10-06] VITALS (22 sets, daily range): BP systolic 106–148
[2021-10-06] MEDS: PIPERACILLIN/TAZO 3.375/DEX-IS 50 ML IV SCH ×4 (01:14→17:43)
[2021-10-06] MEDS: LORazepam 2 MG/ML VIAL IVP PRN (04:11)
[2021-10-06] MEDS: INSULIN Lispro 100 UNITS/ML VIAL (humaLOG) SUBCUT SCH ×3 (06:09→17:43)
[2021-10-06] MEDS: NORMAL SALINE 5 ML DISP.SYRIN IVF SCH ×3 (06:09→21:28)
[2021-10-06 07:03] LABS: BASOPHILS % (AUTO) 0.1 % (0.0-2.0); HEMATOCRIT 33.3 % (36-54); HEMOGLOBIN 11.5 g/dL (14.0-18.0); LYMPHOCYTES # (AUTO) 0.3 K/uL (1.0-5.5); LYMPHOCYTES % (AUTO) 3.3 % (20.5-51.5); MEAN CORPUSCULAR HEMOGLOBIN 29 pg (27-31); MEAN CORPUSCULAR HGB CONC 35 % (32-36); MEAN CORPUSCULAR VOLUME 84 fL (79.0-98.0); MONOCYTES # (AUTO) 0.3 K/uL (0.0-1.0); MONOCYTES % (AUTO) 2.6 % (1.7-9.3); NEUTROPHILS # (AUTO) 9.7 K/uL (1.8-7.7); PLATELET COUNT (AUTO) 82 K/uL (130-430); RED BLOOD CELL COUNT(AUTO) 3.94 MIL/uL (4.2-6.2); RED CELL DISTRIBUTION WIDTH 13.5 % (9.0-15.0); WHITE BLOOD COUNT (AUTO) 10.3 K/uL (4.8-10.8)
[2021-10-06 07:28] LABS: CHLORIDE 93 mmol/L (98-107); GLUCOSE 131 mg/dL (70-99); POTASSIUM 3.5 mmol/L (3.5-5.1); SODIUM SERUM 128 mmol/L (136-145); UREA NITROGEN, BLOOD 18 mg/dL (8-21)
[2021-10-06 07:42] LABS: ANION GAP 10 (5-15); CALCIUM 7.6 mg/dL (8.4-11.0); CREATININE 0.36 mg/dL (0.55-1.30)
[2021-10-06 08:29] LABS: C-REACTIVE PROTEIN QUANT 85.1 mg/dL (0-0.5)
[2021-10-06] MEDS: ALBUTEROL MDI INHALATION 8 GM INH INH SCH ×4 (08:39→19:50)
[2021-10-06] MEDS: INSULIN GLARGINE 100 UNITS/ML 10 ML VIAL SUBCUT SCH ×2 (09:00→22:28)
[2021-10-06] MEDS: ASCORBIC ACID 500 MG TABLET PO SCH ×2 (09:04→21:28)
[2021-10-06] MEDS: CHOLECALCIFEROL (VITAMIN D3) 2,000 UNIT TABLET PO SCH (09:04)
[2021-10-06] MEDS: APIXABAN 2.5 MG TABLET PO SCH ×2 (09:05→21:29)
[2021-10-06] MEDS: PANTOPRAZOLE SODIUM 40 MG TAB PO SCH (09:06)
[2021-10-06 10:35] LABS: ERYTHROCYTE SEDIMENTATION RATE 37 MM/HR (0-15)
[2021-10-06] MEDS: MICAFUNGIN SODIUM 100 MG in NS 100 ML IV SCH (12:07)
[2021-10-06] MEDS: DEXAMETHASONE SOD PHOSPHATE 10 MG/ML VIAL IVP SCH (12:13)
[2021-10-06] MEDS: INSULIN LISPRO SLIDING SCALE 100 UNITS/ML VIAL (humaLOG) SUBCUT PRN (22:29)
[2021-10-07] VITALS (23 sets, daily range): BP systolic 108–161
[2021-10-07] MEDS: PIPERACILLIN/TAZO 3.375/DEX-IS 50 ML IV SCH ×4 (01:58→18:09)
[2021-10-07] MEDS: ALBUTEROL MDI INHALATION 8 GM INH INH SCH ×7 (03:40→22:40)
[2021-10-07 06:25] LABS: BASOPHILS % (AUTO) 0.2 % (0.0-2.0); EOSINOPHILS % (AUTO) 0.1 % (0.0-4.0); HEMATOCRIT 37.3 % (36-54); HEMOGLOBIN 12.8 g/dL (14.0-18.0); LYMPHOCYTES # (AUTO) 0.6 K/uL (1.0-5.5); LYMPHOCYTES % (AUTO) 4.6 % (20.5-51.5); MEAN CORPUSCULAR HEMOGLOBIN 29 pg (27-31); MEAN CORPUSCULAR HGB CONC 34 % (32-36); MEAN CORPUSCULAR VOLUME 84 fL (79.0-98.0); MONOCYTES # (AUTO) 0.5 K/uL (0.0-1.0); MONOCYTES % (AUTO) 3.7 % (1.7-9.3); NEUTROPHILS # (AUTO) 11.4 K/uL (1.8-7.7); NEUTROPHILS % (AUTO) 91.4 % (40.0-70.0); PLATELET COUNT (AUTO) 59 K/uL (130-430); RED BLOOD CELL COUNT(AUTO) 4.45 MIL/uL (4.2-6.2); RED CELL DISTRIBUTION WIDTH 13.1 % (9.0-15.0); WHITE BLOOD COUNT (AUTO) 12.5 K/uL (4.8-10.8)
[2021-10-07 06:45] LABS: ALANINE AMINOTRANSFERASE 34 U/L (12-78); ALBUMIN 1.7 g/dL (3.4-4.8); ANION GAP 7 (5-15); ASPARTATE AMINOTRANSFERASE 24 U/L (10-37); CALCIUM 8.7 mg/dL (8.4-11.0); CHLORIDE 96 mmol/L (98-107); CREATININE 0.46 mg/dL (0.55-1.30); GLUCOSE 172 mg/dL (70-99); POTASSIUM 3.6 mmol/L (3.5-5.1); SODIUM SERUM 135 mmol/L (136-145); TOTAL BILIRUBIN 0.8 mg/dL (0.0-1.0); UREA NITROGEN, BLOOD 16 mg/dL (8-21)
[2021-10-07] MEDS: NORMAL SALINE 5 ML DISP.SYRIN IVF SCH ×3 (06:49→21:19)
[2021-10-07] MEDS: LORazepam 2 MG/ML VIAL IVP PRN (06:53)
[2021-10-07 07:12] LABS: C-REACTIVE PROTEIN QUANT 11.5 mg/dL (0-0.5)
[2021-10-07] MEDS: INSULIN Lispro 100 UNITS/ML VIAL (humaLOG) SUBCUT SCH ×3 (08:14→18:09)
[2021-10-07] MEDS: APIXABAN 2.5 MG TABLET PO SCH ×2 (09:00→21:00)
[2021-10-07] MEDS: CHOLECALCIFEROL (VITAMIN D3) 2,000 UNIT TABLET PO SCH (09:00)
[2021-10-07] MEDS: PANTOPRAZOLE SODIUM 40 MG TAB PO SCH (09:00)
[2021-10-07] MEDS: INSULIN GLARGINE 100 UNITS/ML 10 ML VIAL SUBCUT SCH (09:00)
[2021-10-07] MEDS: ASCORBIC ACID 500 MG TABLET PO SCH ×2 (09:00→21:32)
[2021-10-07] MEDS ORDERED: INSULIN REGULAR, HUMAN 100 UNITS/ML, 10 ML VIAL (humuLIN R) SUBCUT PRN (10:30)
[2021-10-07] MEDS ORDERED: *TPN PER PHARMACY XX PRN (10:30)
[2021-10-07] MEDS ORDERED: DEXTROSE 50% JECT 50 ML DISP.SYRIN IVP PRN (10:30)
[2021-10-07 10:54] LABS: PHOSPHORUS 2.5 mg/dL (2.7-4.5)
[2021-10-07] MEDS: MICAFUNGIN SODIUM 100 MG in NS 100 ML IV SCH (11:35)
[2021-10-07 11:43] LABS: ERYTHROCYTE SEDIMENTATION RATE 32 MM/HR (0-15)
[2021-10-07] MEDS: DEXAMETHASONE SOD PHOSPHATE 10 MG/ML VIAL IVP SCH (12:29)
[2021-10-07] MEDS ORDERED: TPN CENTRAL 0.0001 ML, SODIUM CHLORIDE 40 MEQ, POTASSIUM CHLORIDE 20 MEQ, K PHOS 9 MM, ... IV SCH ×10 (21:00)
[2021-10-08] VITALS (25 sets, daily range): BP systolic 75–158
[2021-10-08] MEDS: PIPERACILLIN/TAZO 3.375/DEX-IS 50 ML IV SCH ×5 (01:21→23:50)
[2021-10-08] MEDS: INSULIN GLARGINE 100 UNITS/ML 10 ML VIAL SUBCUT SCH ×3 (01:26→20:45)
[2021-10-08] MEDS: INSULIN LISPRO SLIDING SCALE 100 UNITS/ML VIAL (humaLOG) SUBCUT PRN ×4 (01:54→23:51)
[2021-10-08] MEDS: ALBUTEROL MDI INHALATION 8 GM INH INH SCH ×5 (03:52→20:21)
[2021-10-08] MEDS: LORazepam 2 MG/ML VIAL IVP PRN (06:09)
[2021-10-08] MEDS: NORMAL SALINE 5 ML DISP.SYRIN IVF SCH ×3 (06:19→22:23)
[2021-10-08 06:42] LABS: BASOPHILS % (AUTO) 0.1 % (0.0-2.0); EOSINOPHILS % (AUTO) 0.1 % (0.0-4.0); HEMATOCRIT 39.7 % (36-54); HEMOGLOBIN 13.4 g/dL (14.0-18.0); LYMPHOCYTES # (AUTO) 0.8 K/uL (1.0-5.5); LYMPHOCYTES % (AUTO) 4.8 % (20.5-51.5); MEAN CORPUSCULAR HEMOGLOBIN 28 pg (27-31); MEAN CORPUSCULAR HGB CONC 34 % (32-36); MEAN CORPUSCULAR VOLUME 84 fL (79.0-98.0); MONOCYTES # (AUTO) 0.6 K/uL (0.0-1.0); MONOCYTES % (AUTO) 3.7 % (1.7-9.3); NEUTROPHILS # (AUTO) 15.1 K/uL (1.8-7.7); NEUTROPHILS % (AUTO) 91.3 % (40.0-70.0); PLATELET COUNT (AUTO) 58 K/uL (130-430); RED BLOOD CELL COUNT(AUTO) 4.73 MIL/uL (4.2-6.2); RED CELL DISTRIBUTION WIDTH 13.3 % (9.0-15.0); WHITE BLOOD COUNT (AUTO) 16.6 K/uL (4.8-10.8)
[2021-10-08 06:50] LABS: ANION GAP 5 (5-15); CHLORIDE 97 mmol/L (98-107); CREATININE 0.61 mg/dL (0.55-1.30); GLUCOSE 233 mg/dL (70-99); PHOSPHORUS 2.1 mg/dL (2.7-4.5); SODIUM SERUM 137 mmol/L (136-145); UREA NITROGEN, BLOOD 21 mg/dL (8-21)
[2021-10-08] MEDS: INSULIN Lispro 100 UNITS/ML VIAL (humaLOG) SUBCUT SCH ×2 (07:00→11:41)
[2021-10-08 07:19] LABS: C-REACTIVE PROTEIN QUANT 7.9 mg/dL (0-0.5)
[2021-10-08] MEDS: PANTOPRAZOLE SODIUM 40 MG TAB PO SCH (09:00)
[2021-10-08] MEDS: ASCORBIC ACID 500 MG TABLET PO SCH ×2 (09:00→20:48)
[2021-10-08] MEDS: APIXABAN 2.5 MG TABLET PO SCH ×2 (09:00→20:45)
[2021-10-08] MEDS: CHOLECALCIFEROL (VITAMIN D3) 2,000 UNIT TABLET PO SCH (09:00)
[2021-10-08] MEDS ORDERED: DEXMEDETOMIDINE HCL 200 MCG in NS 48 ML IV PRN (10:00)
[2021-10-08] MEDS: MICAFUNGIN SODIUM 100 MG in NS 100 ML IV SCH (11:30)
[2021-10-08] MEDS: DEXAMETHASONE SOD PHOSPHATE 10 MG/ML VIAL IVP SCH (11:30)
[2021-10-08 12:46] LABS: ERYTHROCYTE SEDIMENTATION RATE 40 MM/HR (0-15)
[2021-10-08] MEDS: NOREPINEPHRINE BITARTRATE 4 MG in NS 246 ML IV PRN (14:59)
[2021-10-08] MEDS: DEXMEDETOMIDINE HCL 400 MCG in NS 96 ML IV PRN (17:40)
[2021-10-08] MEDS: FAT EMULSIONS 250 ML IV SCH (20:43)
[2021-10-08] MEDS ORDERED: SODIUM CHLORIDE IV SCH ×10 (21:00)
[2021-10-08] MEDS ORDERED: *TPN PER PHARMACY XX PRN (21:00)
[2021-10-08] MEDS ORDERED: POTASSIUM CHLORIDE IV SCH ×10 (21:00)
[2021-10-08] MEDS ORDERED: [UNRECOGNIZED DRUG - OTHER] IV SCH ×10 (21:00)
[2021-10-08] MEDS ORDERED: TPN CENTRAL IV SCH ×10 (21:00)
[2021-10-09] VITALS (24 sets, daily range): BP systolic 101–153
[2021-10-09] MEDS: ALBUTEROL MDI INHALATION 8 GM INH INH SCH ×7 (00:04→23:40)
[2021-10-09] MEDS: PIPERACILLIN/TAZO 3.375/DEX-IS 50 ML IV SCH ×3 (05:34→17:30)
[2021-10-09] MEDS: NORMAL SALINE 5 ML DISP.SYRIN IVF SCH ×3 (05:36→21:22)
[2021-10-09] MEDS: INSULIN LISPRO SLIDING SCALE 100 UNITS/ML VIAL (humaLOG) SUBCUT PRN ×3 (05:52→17:40)
[2021-10-09 06:35] LABS: BASOPHILS % (AUTO) 0.1 % (0.0-2.0); EOSINOPHILS % (AUTO) 0.3 % (0.0-4.0); HEMATOCRIT 36.7 % (36-54); HEMOGLOBIN 12.5 g/dL (14.0-18.0); LYMPHOCYTES # (AUTO) 0.7 K/uL (1.0-5.5); LYMPHOCYTES % (AUTO) 8.2 % (20.5-51.5); MEAN CORPUSCULAR HEMOGLOBIN 29 pg (27-31); MEAN CORPUSCULAR HGB CONC 34 % (32-36); MEAN CORPUSCULAR VOLUME 84 fL (79.0-98.0); MONOCYTES # (AUTO) 0.3 K/uL (0.0-1.0); MONOCYTES % (AUTO) 3.1 % (1.7-9.3); NEUTROPHILS % (AUTO) 88.3 % (40.0-70.0); RED BLOOD CELL COUNT(AUTO) 4.36 MIL/uL (4.2-6.2); RED CELL DISTRIBUTION WIDTH 13.5 % (9.0-15.0)
[2021-10-09 06:38] LABS: ALANINE AMINOTRANSFERASE 20 U/L (12-78); ALBUMIN 1.7 g/dL (3.4-4.8); ANION GAP 5 (5-15); ASPARTATE AMINOTRANSFERASE 11 U/L (10-37); CALCIUM 8.5 mg/dL (8.4-11.0); CHLORIDE 99 mmol/L (98-107); CREATININE 0.43 mg/dL (0.55-1.30); GLUCOSE 263 mg/dL (70-99); PHOSPHORUS 1.9 mg/dL (2.7-4.5); POTASSIUM 3.9 mmol/L (3.5-5.1); SODIUM SERUM 138 mmol/L (136-145); TOTAL BILIRUBIN 0.5 mg/dL (0.0-1.0); UREA NITROGEN, BLOOD 23 mg/dL (8-21)
[2021-10-09 08:04] LABS: C-REACTIVE PROTEIN QUANT 7.8 mg/dL (0-0.5)
[2021-10-09] MEDS: ASCORBIC ACID 500 MG TABLET PO SCH ×2 (08:43→21:22)
[2021-10-09] MEDS: APIXABAN 2.5 MG TABLET PO SCH ×2 (08:43→21:21)
[2021-10-09] MEDS: CHOLECALCIFEROL (VITAMIN D3) 2,000 UNIT TABLET PO SCH (08:43)
[2021-10-09] MEDS: INSULIN GLARGINE 100 UNITS/ML 10 ML VIAL SUBCUT SCH ×2 (08:53→21:00)
[2021-10-09] MEDS ORDERED: PANTOPRAZOLE SODIUM 40 MG/VIAL (PROTONIX) IVP SCH (09:00)
[2021-10-09 09:28] LABS: PLATELET COUNT (AUTO) 37 K/uL (130-430)
[2021-10-09] MEDS: MICAFUNGIN SODIUM 100 MG in NS 100 ML IV SCH (11:53)
[2021-10-09] MEDS: DEXAMETHASONE SOD PHOSPHATE 10 MG/ML VIAL IVP SCH (11:54)
[2021-10-09] MEDS: LORazepam 2 MG/ML VIAL IVP PRN (12:41)
[2021-10-09] MEDS: DEXMEDETOMIDINE HCL 400 MCG in NS 96 ML IV PRN (12:56)
[2021-10-09 13:08] LABS: ERYTHROCYTE SEDIMENTATION RATE 16 MM/HR (0-15)
[2021-10-09] MEDS ORDERED: INSULIN NPH 100 UNITS/ML 10 ML VIAL SUBCUT ONE (15:00)
[2021-10-09] MEDS ORDERED: [UNRECOGNIZED DRUG - OTHER] IV SCH ×10 (21:00)
[2021-10-09] MEDS: FAT EMULSIONS 250 ML IV SCH (21:00)
[2021-10-09] MEDS ORDERED: TPN CENTRAL IV SCH ×10 (21:00)
[2021-10-09] MEDS ORDERED: POTASSIUM CHLORIDE IV SCH ×10 (21:00)
[2021-10-09] MEDS ORDERED: SODIUM CHLORIDE IV SCH ×10 (21:00)
[2021-10-10] VITALS (24 sets, daily range): BP systolic 71–168
[2021-10-10] MEDS: PIPERACILLIN/TAZO 3.375/DEX-IS 50 ML IV SCH ×4 (01:20→17:24)
[2021-10-10] MEDS: INSULIN LISPRO SLIDING SCALE 100 UNITS/ML VIAL (humaLOG) SUBCUT PRN ×2 (01:28→18:04)
[2021-10-10] MEDS: ALBUTEROL MDI INHALATION 8 GM INH INH SCH ×5 (04:17→23:43)
[2021-10-10] MEDS: NORMAL SALINE 5 ML DISP.SYRIN IVF SCH ×3 (06:47→21:24)
[2021-10-10 06:51] LABS: BASOPHILS % (AUTO) 0.1 % (0.0-2.0); EOSINOPHILS # (AUTO) 0.1 K/uL (0.0-0.4); EOSINOPHILS % (AUTO) 0.8 % (0.0-4.0); HEMATOCRIT 37.5 % (36-54); HEMOGLOBIN 12.8 g/dL (14.0-18.0); LYMPHOCYTES # (AUTO) 0.8 K/uL (1.0-5.5); LYMPHOCYTES % (AUTO) 8.2 % (20.5-51.5); MEAN CORPUSCULAR HEMOGLOBIN 29 pg (27-31); MEAN CORPUSCULAR HGB CONC 34 % (32-36); MEAN CORPUSCULAR VOLUME 84 fL (79.0-98.0); MONOCYTES # (AUTO) 0.3 K/uL (0.0-1.0); NEUTROPHILS # (AUTO) 8.2 K/uL (1.8-7.7); NEUTROPHILS % (AUTO) 87.9 % (40.0-70.0); PLATELET COUNT (AUTO) 64 K/uL (130-430); RED BLOOD CELL COUNT(AUTO) 4.45 MIL/uL (4.2-6.2); RED CELL DISTRIBUTION WIDTH 13.5 % (9.0-15.0); WHITE BLOOD COUNT (AUTO) 9.4 K/uL (4.8-10.8)
[2021-10-10 08:08] LABS: ALANINE AMINOTRANSFERASE 20 U/L (12-78); ALBUMIN 1.7 g/dL (3.4-4.8); ANION GAP 5 (5-15); ASPARTATE AMINOTRANSFERASE 19 U/L (10-37); CALCIUM 8.6 mg/dL (8.4-11.0); CHLORIDE 101 mmol/L (98-107); CREATININE 0.41 mg/dL (0.55-1.30); GLUCOSE 199 mg/dL (70-99); PHOSPHORUS 2.2 mg/dL (2.7-4.5); POTASSIUM 3.8 mmol/L (3.5-5.1); SODIUM SERUM 140 mmol/L (136-145); TOTAL BILIRUBIN 0.5 mg/dL (0.0-1.0); UREA NITROGEN, BLOOD 20 mg/dL (8-21)
[2021-10-10 08:34] LABS: C-REACTIVE PROTEIN QUANT 8.1 mg/dL (0-0.5)
[2021-10-10 08:39] LABS: ERYTHROCYTE SEDIMENTATION RATE 28 MM/HR (0-15)
[2021-10-10] MEDS: ASCORBIC ACID 500 MG TABLET PO SCH ×3 (08:46→21:00)
[2021-10-10] MEDS: CHOLECALCIFEROL (VITAMIN D3) 2,000 UNIT TABLET PO SCH ×2 (08:46→09:00)
[2021-10-10] MEDS: INSULIN GLARGINE 100 UNITS/ML 10 ML VIAL SUBCUT SCH ×2 (08:48→21:00)
[2021-10-10] MEDS: MICAFUNGIN SODIUM 100 MG in NS 100 ML IV SCH (11:36)
[2021-10-10] MEDS ORDERED: NOREPINEPHRINE 4 MG/4 ML VIAL IV ONE ×2 (12:56→16:33)
[2021-10-10] MEDS: DEXAMETHASONE SOD PHOSPHATE 10 MG/ML VIAL IVP SCH (13:36)
[2021-10-10] MEDS: NOREPINEPHRINE BITARTRATE 4 MG in NS 246 ML IV PRN (15:16)
[2021-10-10] MEDS ORDERED: NOREPINEPHRINE BITARTRATE 8 MG in NS 242 ML IV PRN (17:30)
[2021-10-10] MEDS: FAT EMULSIONS 250 ML IV SCH (21:00)
[2021-10-10] MEDS: SODIUM CHLORIDE IV SCH ×9 (21:00)
[2021-10-10] MEDS: [UNRECOGNIZED DRUG - OTHER] IV SCH ×9 (21:00)
[2021-10-10] MEDS: TPN CENTRAL IV SCH ×9 (21:00)
[2021-10-10] MEDS: POTASSIUM CHLORIDE IV SCH ×9 (21:00)
[2021-10-11] VITALS (24 sets, daily range): BP systolic 108–161
[2021-10-11] MEDS: PIPERACILLIN/TAZO 3.375/DEX-IS 50 ML IV SCH ×3 (01:26→13:13)
[2021-10-11] MEDS: ALBUTEROL MDI INHALATION 8 GM INH INH SCH ×5 (04:05→22:47)
[2021-10-11 06:10] LABS: BASOPHILS % (AUTO) 0.1 % (0.0-2.0); HEMATOCRIT 36.5 % (36-54); HEMOGLOBIN 12.2 g/dL (14.0-18.0); LYMPHOCYTES # (AUTO) 0.3 K/uL (1.0-5.5); LYMPHOCYTES % (AUTO) 1.7 % (20.5-51.5); MEAN CORPUSCULAR HEMOGLOBIN 28 pg (27-31); MEAN CORPUSCULAR HGB CONC 34 % (32-36); MEAN CORPUSCULAR VOLUME 85 fL (79.0-98.0); MONOCYTES # (AUTO) 0.5 K/uL (0.0-1.0); MONOCYTES % (AUTO) 3.1 % (1.7-9.3); NEUTROPHILS # (AUTO) 16.3 K/uL (1.8-7.7); NEUTROPHILS % (AUTO) 95.1 % (40.0-70.0); RED BLOOD CELL COUNT(AUTO) 4.31 MIL/uL (4.2-6.2); RED CELL DISTRIBUTION WIDTH 13.8 % (9.0-15.0); WHITE BLOOD COUNT (AUTO) 17.2 K/uL (4.8-10.8)
[2021-10-11 06:54] LABS: ALANINE AMINOTRANSFERASE 34 U/L (12-78); ALBUMIN 1.6 g/dL (3.4-4.8); ANION GAP 5 (5-15); ASPARTATE AMINOTRANSFERASE 107 U/L (10-37); CALCIUM 8.7 mg/dL (8.4-11.0); CHLORIDE 106 mmol/L (98-107); CREATININE 1.52 mg/dL (0.55-1.30); GLUCOSE 314 mg/dL (70-99); PHOSPHORUS 4.1 mg/dL (2.7-4.5); SODIUM SERUM 142 mmol/L (136-145); TOTAL BILIRUBIN 0.7 mg/dL (0.0-1.0); TRIGLYCERIDES 79 mg/dL (30-150); UREA NITROGEN, BLOOD 41 mg/dL (8-21)
[2021-10-11 07:08] LABS: POTASSIUM 4.6 mmol/L (3.5-5.1)
[2021-10-11] MEDS: NORMAL SALINE 5 ML DISP.SYRIN IVF SCH ×3 (07:08→22:20)
[2021-10-11 07:16] LABS: C-REACTIVE PROTEIN QUANT 14.3 mg/dL (0-0.5)
[2021-10-11] MEDS: DEXMEDETOMIDINE HCL 400 MCG in NS 96 ML IV PRN ×2 (07:57→22:48)
[2021-10-11] MEDS: CHOLECALCIFEROL (VITAMIN D3) 2,000 UNIT TABLET PO SCH (09:00)
[2021-10-11] MEDS: ASCORBIC ACID 500 MG TABLET PO SCH ×2 (09:00→20:36)
[2021-10-11 09:42] LABS: ERYTHROCYTE SEDIMENTATION RATE 18 MM/HR (0-15)
[2021-10-11] MEDS: INSULIN GLARGINE 100 UNITS/ML 10 ML VIAL SUBCUT SCH ×2 (10:00→20:39)
[2021-10-11 11:38] LABS: PLATELET COUNT (AUTO) 47 K/uL (130-430)
[2021-10-11] MEDS: DEXAMETHASONE SOD PHOSPHATE 10 MG/ML VIAL IVP SCH (13:12)
[2021-10-11] MEDS: FAT EMULSIONS 250 ML IV SCH (13:12)
[2021-10-11] MEDS: MICAFUNGIN SODIUM 100 MG in NS 100 ML IV SCH (13:19)
[2021-10-11] MEDS: INSULIN LISPRO SLIDING SCALE 100 UNITS/ML VIAL (humaLOG) SUBCUT PRN ×2 (14:53→18:46)
[2021-10-11] MEDS ORDERED: D5/0.45 NS 1,000 ML IV SCH (16:30)
[2021-10-11] MEDS: NACL 0.9% 1,000 ML IV SCH (19:12)
[2021-10-11] MEDS: SODIUM CHLORIDE IV SCH ×9 (20:34)
[2021-10-11] MEDS: POTASSIUM CHLORIDE IV SCH ×9 (20:34)
[2021-10-11] MEDS: [UNRECOGNIZED DRUG - OTHER] IV SCH ×9 (20:34)
[2021-10-11] MEDS: TPN CENTRAL IV SCH ×9 (20:34)
[2021-10-11] MEDS: MEROPENEM 500 MG in NS 50 ML IV SCH (20:35)
[2021-10-11] MEDS ORDERED: MAGNESIUM SULFATE IV SCH ×7 (21:00)
[2021-10-11] MEDS ORDERED: TPN CENTRAL IV SCH ×7 (21:00)
[2021-10-11] MEDS ORDERED: SODIUM CHLORIDE IV SCH ×7 (21:00)
[2021-10-11] MEDS ORDERED: [UNRECOGNIZED DRUG - OTHER] IV SCH ×7 (21:00)
[2021-10-12] VITALS (20 sets, daily range): BP systolic 94–187
[2021-10-12] MEDS: INSULIN LISPRO SLIDING SCALE 100 UNITS/ML VIAL (humaLOG) SUBCUT PRN ×3 (00:20→12:25)
[2021-10-12] MEDS: ALBUTEROL MDI INHALATION 8 GM INH INH SCH ×6 (00:20→23:34)
[2021-10-12] MEDS: NORMAL SALINE 5 ML DISP.SYRIN IVF SCH ×3 (05:39→22:00)
[2021-10-12 07:17] LABS: ALANINE AMINOTRANSFERASE 29 U/L (12-78); ALBUMIN 1.5 g/dL (3.4-4.8); ANION GAP 8 (5-15); ASPARTATE AMINOTRANSFERASE 105 U/L (10-37); CALCIUM 8.6 mg/dL (8.4-11.0); CHLORIDE 105 mmol/L (98-107); CREATININE 2.53 mg/dL (0.55-1.30); GLUCOSE 218 mg/dL (70-99); PHOSPHORUS 4.4 mg/dL (2.7-4.5); POTASSIUM 4.3 mmol/L (3.5-5.1); SODIUM SERUM 144 mmol/L (136-145); TOTAL BILIRUBIN 0.3 mg/dL (0.0-1.0); UREA NITROGEN, BLOOD 59 mg/dL (8-21)
[2021-10-12 07:21] LABS: C-REACTIVE PROTEIN QUANT 10.5 mg/dL (0-0.5)
[2021-10-12 08:28] LABS: BASOPHILS % (AUTO) 0.3 % (0.0-2.0); EOSINOPHILS % (AUTO) 0.1 % (0.0-4.0); HEMATOCRIT 34.2 % (36-54); HEMOGLOBIN 11.5 g/dL (14.0-18.0); LYMPHOCYTES # (AUTO) 0.4 K/uL (1.0-5.5); LYMPHOCYTES % (AUTO) 2.3 % (20.5-51.5); MEAN CORPUSCULAR HEMOGLOBIN 29 pg (27-31); MEAN CORPUSCULAR HGB CONC 34 % (32-36); MEAN CORPUSCULAR VOLUME 86 fL (79.0-98.0); MONOCYTES # (AUTO) 0.6 K/uL (0.0-1.0); NEUTROPHILS # (AUTO) 17.5 K/uL (1.8-7.7); NEUTROPHILS % (AUTO) 94.3 % (40.0-70.0); RED BLOOD CELL COUNT(AUTO) 3.97 MIL/uL (4.2-6.2); WHITE BLOOD COUNT (AUTO) 18.5 K/uL (4.8-10.8)
[2021-10-12 08:41] LABS: PLATELET COUNT (AUTO) 50 K/uL (130-430)
[2021-10-12] MEDS: ASCORBIC ACID 500 MG TABLET PO SCH ×2 (09:00→21:00)
[2021-10-12] MEDS: CHOLECALCIFEROL (VITAMIN D3) 2,000 UNIT TABLET PO SCH (09:00)
[2021-10-12 09:16] LABS: ERYTHROCYTE SEDIMENTATION RATE 30 MM/HR (0-15)
[2021-10-12] MEDS: MEROPENEM 500 MG in NS 50 ML IV SCH ×2 (09:25→21:00)
[2021-10-12] MEDS: INSULIN GLARGINE 100 UNITS/ML 10 ML VIAL SUBCUT SCH (09:28)
[2021-10-12] MEDS ORDERED: *LOVENOX 1MG/KG Q12H/PHARMACY XX ONE (10:15)
[2021-10-12] MEDS ORDERED: ENOXAPARIN SODIUM 80 MG/0.8 ML SYRINGE SUBCUT ONE ×2 (11:00)
[2021-10-12 12:08] LABS: URINE SODIUM, RANDOM 48 mmol/L (40-220)
[2021-10-12] MEDS: DEXAMETHASONE SOD PHOSPHATE 10 MG/ML VIAL IVP SCH (12:22)
[2021-10-12] MEDS: NACL 0.9% 1,000 ML IV SCH (13:55)
[2021-10-12] MEDS: MICAFUNGIN SODIUM 100 MG in NS 100 ML IV SCH (13:55)
[2021-10-12] MEDS ORDERED: hydrALAZINE HCL 20 MG/ML VIAL IVP PRN (14:45)
[2021-10-12] MEDS ORDERED: D5W 1,000 ML IV SCH ×2 (15:15→15:45)
[2021-10-12] MEDS ORDERED: MORPHINE SULFATE IN 0.9 % NACL 100 ML IV PRN (18:15)
[2021-10-12] MEDS ORDERED: DEXMEDETOMIDINE HCL 200 MCG/2 ML VIAL IV ONE (20:14)
[2021-10-12] MEDS ORDERED: POTASSIUM CHLORIDE IV SCH ×7 (21:00)
[2021-10-12] MEDS ORDERED: FUROSEMIDE 20 MG/2 ML VIAL IVP SCH (21:00)
[2021-10-12] MEDS ORDERED: TPN CENTRAL IV SCH ×7 (21:00)
[2021-10-12] MEDS ORDERED: INSULIN GLARGINE 100 UNITS/ML 10 ML VIAL SUBCUT SCH (21:00)
[2021-10-12] MEDS ORDERED: MAGNESIUM SULFATE IV SCH ×7 (21:00)
[2021-10-12] MEDS ORDERED: [UNRECOGNIZED DRUG - OTHER] IV SCH ×7 (21:00)
[2021-10-12] MEDS: FAT EMULSIONS 250 ML IV SCH (21:00)
[2021-10-13] MEDS ORDERED: ENOXAPARIN SODIUM 80 MG/0.8 ML SYRINGE SUBCUT SCH ×2 (09:00)
== END 2021-10-13 01:18 | DRG 871 ==
LOC: SED 19:54 → SIC 22:00 → STU 09-21 04:35 → SIC 09-21 14:46
PROVIDERS: ADMIT Preventive Medicine Preventive Medicine/Occupational Environmental Medicine; ATTEND Preventive Medicine Preventive Medicine/Occupational Environmental Medicine
PROC: 5A09557 Assistance with Respiratory Ventilation, Greater than 96 Consecutive Hours, Continuous Positive Airway Pressure (ICD-10-PCS; 2021-09-21)
PROC: 0D9670Z Drainage of Stomach with Drainage Device, Via Natural or Artificial Opening (ICD-10-PCS; 2021-09-21)
PROC: 05HY33Z Insertion of Infusion Device into Upper Vein, Percutaneous Approach (ICD-10-PCS; 2021-09-21)
PROC: 0W9B30Z Drainage of Left Pleural Cavity with Drainage Device, Percutaneous Approach (ICD-10-PCS; 2021-09-22)
PROC: 5A0945A Assistance with Respiratory Ventilation, 24-96 Consecutive Hours, High Flow/Velocity Cannula (ICD-10-PCS; 2021-09-23)
PROC: 02HV33Z Insertion of Infusion Device into Superior Vena Cava, Percutaneous Approach (ICD-10-PCS; 2021-09-24)
PROC: B548ZZA Ultrasonography of Superior Vena Cava, Guidance (ICD-10-PCS; 2021-09-24)
PROC: 5A09557 Assistance with Respiratory Ventilation, Greater than 96 Consecutive Hours, Continuous Positive Airway Pressure (ICD-10-PCS; 2021-10-05)
PROC: 5A12012 Performance of Cardiac Output, Single, Manual (ICD-10-PCS; principal; 2021-10-12)
DX: A41.9 Sepsis, unspecified organism (principal); E11.10 Type 2 diabetes mellitus with ketoacidosis without coma; J12.82 Pneumonia due to coronavirus disease 2019; J96.01 Acute respiratory failure with hypoxia; U07.1 COVID-19; R65.21 Severe sepsis with septic shock; E43 Unspecified severe protein-calorie malnutrition; E87.1 Hypo-osmolality and hyponatremia; N39.0 Urinary tract infection, site not specified; Z68.41 Body mass index [BMI] 40.0-44.9, adult; G93.40 Encephalopathy, unspecified; I82.621 Acute embolism and thrombosis of deep veins of right upper extremity; N17.9 Acute kidney failure, unspecified; I25.10 Atherosclerotic heart disease of native coronary artery without angina pectoris; R13.10 Dysphagia, unspecified; F03.90 Unspecified dementia, unspecified severity, without behavioral disturbance, psychotic disturbance, mood disturbance, and anxiety; I10 Essential (primary) hypertension; E86.0 Dehydration; E88.09 Other disorders of plasma-protein metabolism, not elsewhere classified; R74.01 Elevation of levels of liver transaminase levels; R79.89 Other specified abnormal findings of blood chemistry; E87.5 Hyperkalemia; E83.52 Hypercalcemia; E83.51 Hypocalcemia; R32 Unspecified urinary incontinence; D64.9 Anemia, unspecified; D69.6 Thrombocytopenia, unspecified; E78.5 Hyperlipidemia, unspecified; E11.65 Type 2 diabetes mellitus with hyperglycemia; E66.9 Obesity, unspecified; E83.39 Other disorders of phosphorus metabolism; E83.41 Hypermagnesemia; Z95.0 Presence of cardiac pacemaker; Z91.19 Patient's noncompliance with other medical treatment and regimen; Z86.74 Personal history of sudden cardiac arrest; Z79.4 Long term (current) use of insulin; Z79.01 Long term (current) use of anticoagulants; Z68.24 Body mass index [BMI] 24.0-24.9, adult
CPT/HCPCS: 36415; 36600; 71045; 71275; 76376; 76770; 80048; 80053; 80076; 81000; 82009; 82570; 82607; 82728; 82746; 82803-TC; 82962; 83605; 83615; 83735; 84100; 84302; 84478; 84484; 85025; 85379; 85610-TC; 85651-TC; 85730-TC; 86022; 86038; 86140; 86886; 86900; 86901; 87040; 87086; 87305; 92610-GN; 93005; 93971; 94640; 94660; 94760; 96365; 96375; 99285; C9113; J0360; J0456; J0610; J0696; J1100; J1450; J1650; J1815; J2060; J2185; J2248; J2270; J2543; J3475; J3480; J7050; J7131; Q9967